=== PATIENT | female | born 1955 | race Caucasian/White ===

== ENCOUNTER 2023-05-23 10:03 | Emergency (ER) | payer MEDICARE, OTHER ==
[2023-05-23 11:14] LABS: BASOPHILS % (AUTO) 0.7 %; EOSINOPHILS # (AUTO) 0.3 10^3/uL (0.0-0.7); HCT - HEMATOCRIT 43.5 % (37.0-47.0); HGB - HEMOGLOBIN 14.1 g/dL (12.0-16.0); LYMPHOCYTES # (AUTO) 1.5 10^3/uL (1.5-3.5); LYMPHOCYTES % (AUTO) 25.4 %; MEAN CORPUSCULAR HGB CONC 32.4 g/dL (32.0-36.0); MEAN CORPUSCULAR VOLUME 86.3 fL (81.0-99.0); MEAN PLATELET VOLUME 9.8 fL (7.9-10.8); MONOCYTES # (AUTO) 0.5 10^3/uL (0.0-1.0); MONOCYTES % (AUTO) 8.6 %; NEUTROPHILS # (AUTO) 3.6 10^3/uL (1.5-6.6); NEUTROPHILS % (AUTO) 60.1 %; PLT - PLATELET COUNT 214 10^3/uL (130-450); RED BLOOD COUNT 5.04 10^6/uL (4.20-5.40); RED CELL DISTRIBUTION WIDTH 12.7 % (12.0-15.0)
--- NOTE | 2023-05-23 11:15 | Ultrasound Report ---
PROCEDURE: Duplex Ext Veins Bilateral INDICATIONS: Dwaine Muniz TECHNIQUE: Real-time imaging, as well as color and pulse Doppler interrogation, were performed of the deep veins of both legs from the inguinal ligament to the popliteal fossa. Attempted visualization of the calf veins was performed. COMPARISON: None FINDINGS: The deep veins are normally compressible, and free of intraluminal thrombus. Color and pu lse Doppler demonstrate normal phasic intravascular flow. There is normal augmentation response to d istal compression maneuver. IMPRESSION: No evidence of lower extremity DVT bilaterally. Reviewed by: Mike Marcelino MD on 05/23/2023 11:13 AM PDT Approved by: Mike Marcelino MD on 05/23/2023 11:13 AM PDT Station ID: [id number]
[2023-05-23 11:34] LABS: CALCIUM 9.5 mg/dL (8.5-10.3); CREATININE 0.8 mg/dL (0.6-1.3); POTASSIUM 4.3 mmol/L (3.5-4.5)
--- NOTE | 2023-05-23 12:42 | ED Physician Documentation ---
History of Present Illness - Stated complaint Stated Complaint: LEG/FEET SWELLING - Chief complaint Chief Complaint: General - History obtained from History obtained from: Patient - History of Present Illness Timing: How many weeks ago (2) Pain level max: 0 Pain level now: 0 - Additonal information Additional information: Patient is a 67-year-old female who is traveling in an RV with her . She states that she has a history of pulmonary embolism approximately 2 years ago. She states that since they have been traveling she has noted increased swelling in her bilateral legs, ankles and calves. She states does not change much with elevation. No shortness of breath. No chest pain. No fevers. No coughing. No chills. She is not currently on blood thinners. No redness. No warmth. No history of heart issues. No history of heart failure. Review of Systems Constitutional: denies: Fever, Chills Respiratory: denies: Dyspnea, Cough, Wheezing GI: denies: Abdominal Pain, Vomiting, Diarrhea Skin: denies: Rash Musculoskeletal: denies: Neck pain, Back pain Neurologic: denies: Headache PD PAST MEDICAL HISTORY - Past Medical History Past Medical History: Yes Other Past Medical History: Pulmonary embolism - Present Medications Home Medications: Ambulatory Orders Medication Instructions Recorded Confirmed Furosemide [Lasix] 20 mg PO DAILY #7 tablet 05/23/23 - Allergies Allergies/Adverse Reactions: Allergies Allergy/AdvReac Type Severity Reaction Status Date / Time No Known Drug Allergies Allergy Verified 05/23/23 10:15 - Living Situation Living Situation: reports: With family Living Arrangement: reports: At home PD ED PE NORMAL - Vitals Vital signs reviewed: Yes - General General: Alert and oriented X 3, No acute distress - HEENT HEENT: Moist mucous membranes - Neck Neck: Supple, no meningeal sign - Cardiac Cardiac: RRR, Strong equal pulses - Respiratory Respiratory: No respiratory distress, Clear bilaterally - Abdomen Abdomen: Soft, Non tender, Non distended - Derm Derm: Warm and dry - Extremities Extremities: Other (1+ bilateral lower extremity pitting edema. No calf tender ness. No cord.) - Neuro Neuro: Alert and oriented X 3 Results - Vitals Vitals: Vital Signs - 24 hr 05/23/23 05/23/23 10:09 10:15 Temperature 36.3 C L 36.5 C Heart Rate 80 80 Respiratory 16 16 Rate Blood Pressure 149/74 H 149/74 H O2 Saturation 98 98 Oxygen O2 Source Room air - Labs Labs: Laboratory Tests 05/23/23 05/23/23 05/23/23 11:10 11:10 11:10 WBC 6.0 RBC 5.04 Hgb 14.1 Hct 43.5 MCV 86.3 MCH 28.0 MCHC 32.4 RDW 12.7 Plt Count 214 MPV 9.8 Neut # (Auto) 3.6 Lymph # (Auto) 1.5 [place] # (Auto) 0.5 Eos # (Auto) 0.3 Baso # (Auto) 0.0 Absolute Nucleated RBC 0.00 Nucleated RBC % 0.0 Sodium 141 Potassium 4.3 Chloride 107 Carbon Dioxide 30 Anion Gap 4.0 L BUN 15 Creatinine 0.8 Estimated GFR (MDRD) 71 L Glucose 83 Calcium 9.5 B-Natriuretic Peptide 191 H - Rads (name of study) Duplex ultrasound bilateral lower extremity Relevant Findings:: Final report received, See rad report PD Medical Decision Making - ED course Complexity details: considered differential, d/w patient ED course: No acute findings on ultrasound. No significant lab abnormalities. Patient with what appears to be dependent bilateral peripheral edema. We will start the patient on Lasix. She is well-appearing, nontoxic. Afebrile. No chest pain. No dyspnea. No indication for x-ray. Patient counseled regarding signs and symptoms for which I believe and urgent re-evaluation would be necessary. Patient with good understanding of and agreement to plan and is comfortable going home at this time This document was made in part using voice recognition software. While efforts are made to proofread this document, sound alike and grammatical errors may occur. Departure - Departure Disposition: 01 Home, Self Care Clinical Impression: Peripheral edema Condition: Good Instructions: ED Edema Legs Bilateral Follow-Up: your,doctor when you return home [Other] Prescriptions: Furosemide [Lasix] 20 mg PO DAILY #7 tablet Comments: Your prescriptions were sent to [facility] in [place]. The diuretic will help to decrease the swelling in your legs. Compression socks will help as well. Your ultrasound does not show any evidence of blood clot in your legs today. Forms: PCP List
[2023-05-23 12:54] VITALS: BP 130/70; O2SAT 100
== END 2023-05-23 12:48 | disposition home or self-care (01) ==
LOC: ED 10:03
DX: R60.9 Edema, unspecified (principal); Z86.718 Personal history of other venous thrombosis and embolism
CPT/HCPCS: 36415; 80048; 83880; 85025; 93005; 93970; 99283; 99284